=== PATIENT | male | born 1990 | race Caucasian/White ===

== ENCOUNTER 2025-01-18 01:09 | Emergency (ER) | payer SELFPAY ==
[2025-01-18 01:15] VITALS: BP 129/86; PULSE 76; RESP 18; TEMP 98.4; BMI 27.3
[2025-01-18] MEDS ORDERED: KETOROLAC TROMETHAMINE 30 MG/1 ML VIAL ONE (01:33)
[2025-01-18] MEDS: KETOROLAC TROMETHAMINE 30 MG/1 ML VIAL IM ONE (01:39)
[2025-01-18 01:41] LABS: URINE APPEARANCE CLEAR; URINE BILIRUBIN NEGATIVE (NEGATIVE); URINE COLOR YELLOW; URINE GLUCOSE (UA) NEGATIVE (NEGATIVE); URINE KETONE NEGATIVE (NEGATIVE); URINE LEUK ESTERASE NEGATIVE (NEGATIVE); URINE NITRITE NEGATIVE (NEGATIVE); URINE PROTEIN NEGATIVE (NEGATIVE); URINE UROBILINOGEN 0.2 mg/dL (0.2-1.0)
[2025-01-18] MEDS ORDERED: LIDOCAINE 5% TOPICAL PATCH ONE (01:55)
[2025-01-18] MEDS ORDERED: METHOCARBAMOL 500 MG TABLET ONE (01:55)
[2025-01-18] MEDS: METHOCARBAMOL 500 MG TABLET PO ONE (02:05)
[2025-01-18] MEDS: LIDOCAINE 5% TOPICAL PATCH TP ONE (02:05)
[2025-01-18] MEDS ORDERED: LIDOCAINE PATCH REMOVAL MC SCH (22:00)
== END 2025-01-18 02:41 | disposition home or self-care (01) ==
LOC: JER 01:09
PROC: 3E0233Z Introduction of Anti-inflammatory into Muscle, Percutaneous Approach (ICD-10-PCS; principal; 2025-01-18)
CPT/HCPCS: 81003; 87086; 99284-25